=== PATIENT | female | born 1970 | race Caucasian/White ===

== ENCOUNTER 2024-01-01 09:16 | Day surgery (SDC) | payer BC ==
[2023-12-25 15:27] LABS: BASOPHILS # (AUTO) 0.1 X10'3 (0-0.2); BASOPHILS % (AUTO) 2.2 % (0-1); EOSINOPHILS # (AUTO) 0.1 X10'3 (0-0.9); EOSINOPHILS % (AUTO) 2.1 % (0-6); LYMPHOCYTES # (AUTO) 1.8 X10'3 (1.1-4.8); LYMPHOCYTES % (AUTO) 41.4 % (21-51); MEAN CORPUSCULAR HEMOGLOBIN 30.3 PG (27.0-31.0); MEAN CORPUSCULAR HGB CONC 33.4 g/dL (33.0-36.5); MEAN CORPUSCULAR VOLUME 90.5 FL (78-98); MEAN PLATELET VOLUME 8.1 FL (7.4-10.4); MONOCYTES # (AUTO) 0.4 X10'3 (0-0.9); MONOCYTES % (AUTO) 8.1 % (2-12); NEUTROPHILS # (AUTO) 2.1 X10'3 (1.8-7.7); NEUTROPHILS % (AUTO) 46.2 % (42-75); PRE OP HEMATOCRIT 43.1 % (35.0-45.0); PRE OP HEMOGLOBIN 14.4 g/dL (12.0-16.0); PRE OP PLATELET COUNT 211 X10'3 (140-440); PRE OP WHITE BLOOD COUNT 4.5 10'3 (4.8-10.8); RED BLOOD COUNT 4.76 X10'6 (4.20-5.60); RED CELL DISTRIBUTION WIDTH 12.9 % (11.5-14.5)
[2023-12-25 15:38] LABS: ALBUMIN 3.8 G/DL (3.4-5.0); ALBUMIN/GLOBULIN RATIO 1.2 (1.1-1.5); ALKALINE PHOSPHATASE 51 IU/L (46-116); BLOOD UREA NITROGEN 24 MG/DL (7-18); CALCIUM 8.7 MG/DL (8.5-10.1); CHLORIDE 106 MMOL/L (99-107); CREATININE 0.89 MG/DL (0.40-0.90); PRE OP ALT 19 U/L (30-65); PRE OP ANION GAP 6 (8-16); PRE OP AST 12 U/L (10-37); PRE OP BILIRUB, TOTAL 0.5 MG/DL (0.0-1.0); PRE OP GLUCOSE 94 MG/DL (70-104); PRE OP POTASSIUM 3.7 MMOL/L (3.4-5.1); PRE OP SODIUM 143 MMOL/L (135-145); TOTAL PROTEIN 7.1 G/DL (6.4-8.2); eGFR 66 ML/MIN
[2023-12-25 16:09] LABS: BILIRUBIN,URINE NEGATIVE (Neg); CLARITY,URINE SLIGHTLY CLOUDY (Clear); COLOR,URINE YELLOW (Yellow); GLUCOSE, URINE NEGATIVE (Neg); KETONES,URINE NEGATIVE (Neg); LEUKOCYTE ESTERASE ,URINE TRACE (Neg); NITRITES, URINE NEGATIVE (Neg); OCCULT BLOOD,URINE NEGATIVE (Neg); PH,URINE 6.5 (4.8-8.0); PROTEIN,URINE NEGATIVE (Neg); UROBILINOGEN,URINE 0.2 E.U/dL (0.2-1.0)
[2023-12-25 16:10] LABS: UA COLLECTION TYPE CLN CATCH MIDSTREAM
[2023-12-25 16:46] LABS: RBC,URINE 0-2 /HPF (0-2); TRANSITIONAL EPI CELLS,URINE MODERATE /HPF
[2023-12-25 16:50] LABS: SQUAMOUS EPITHELIAL CELL,UR MANY /LPF (FEW)
[2023-12-25 16:51] LABS: WBC CLUMPS,URINE FEW /HPF (NEGATIVE)
[2023-12-25 16:55] LABS: BACTERIA,URINE 2+ /HPF (Neg)
[2024-01-01] VITALS (11 sets, daily range): BP systolic 119–136; BP diastolic 74–89; PULSE 54–70; RESP 11–16; TEMP 97.6; O2SAT 97–100
[~2024-01-01] VITALS: Ht 172.7 cm; Wt 79.6 kg
[2024-01-01] MEDS: cefazolin 2gm/D5W 100mL 100 ML IV ONE (05:30)
[~2024-01-01 09:16] MED LIST: PROBIOTICS
[2024-01-01] MEDS: famotidine 20mg tablet PO ONE (09:52)
[2024-01-01] MEDS: ringers solution, lacted 1,000 ML IV SCH (09:54)
[2024-01-01] MEDS ORDERED: fentaNYL/PF 50MCG/1 ML 2ML syringe IV PRN ×2 (10:20)
[2024-01-01] MEDS ORDERED: morphine 4 MG/ML inj SYRINge IV PRN (10:20)
[2024-01-01] MEDS ORDERED: ondansetron/PF 4mg/2ml inj IV PRN (10:20)
[2024-01-01] MEDS ORDERED: labetalol 20mg/4ml (5mg/ml) syringe IV PRN (10:20)
[2024-01-01] MEDS ORDERED: ringers solution, lacted 1,000 ML IV SCH (10:20)
[2024-01-01] MEDS ORDERED: morphine 2 MG/ML inj. syringe IV PRN (10:20)
[2024-01-01] MEDS ORDERED: hydrALAZINE 20mg/ml inj. IV PRN (10:20)
[2024-01-01] MEDS ORDERED: desflurane 240ml liquid inh. IH ONE (10:25)
[2024-01-01] MEDS ORDERED: midazolam 1 mg/ML 2ml injection ONE (10:28)
[2024-01-01] MEDS ORDERED: fentaNYL/PF 50MCG/1 ML 2ML syringe ONE (10:28)
[2024-01-01] MEDS ORDERED: propofol inj 20 ML IV ONE (10:29)
[2024-01-01] MEDS ORDERED: LIDOcaine 2% (20mg/ml) 5ml vial ONE (10:29)
[2024-01-01] MEDS ORDERED: acetaminophen 1,000mg/100ml IV 100 ML IV ONE (10:29)
[2024-01-01] MEDS ORDERED: dexamethasone sod phosphate 4mg/ml inj. ONE (10:29)
[2024-01-01] MEDS ORDERED: ondansetron/PF 4mg/2ml inj ONE (10:30)
[2024-01-01] MEDS ORDERED: ketorolac trometh. 30mg/ml inj. ONE (10:49)
[2024-01-01] MEDS: BUPIVAcaine 2.5mg/ml inj 50ml vial (contains preservative) IJ ONE (10:50)
== END 2024-01-01 12:27 | disposition home or self-care (01) ==
LOC: PAS 09:16
PROVIDERS: ATTEND Podiatrist Foot & Ankle Surgery
DX: G57.62 Lesion of plantar nerve, left lower limb (principal); I20.9 Angina pectoris, unspecified; I25.2 Old myocardial infarction; Z85.09 Personal history of malignant neoplasm of other digestive organs; Z79.82 Long term (current) use of aspirin; Z79.891 Long term (current) use of opiate analgesic; Z79.899 Other long term (current) drug therapy; Z90.89 Acquired absence of other organs; Z98.891 History of uterine scar from previous surgery; Z98.890 Other specified postprocedural states
CPT/HCPCS: 28080; 36415; 80053; 81001; 82948; 85025; 93005; A6223; J0131; J0690; J1100; J1885; J2250; J2405; J2704; J3010; J3490; J7030; J7120; L4360; Z7506; Z7512; A4215; A4618; A6449; A7000